=== PATIENT | male | born 1970 | race African-American/Black ===

== ENCOUNTER 2017-08-08 12:09 | Emergency (ER) | payer MEDICAID, OTHER ==
[~2017-08-08] VITALS: Ht 177.8 cm; Wt 86.2 kg
[~2017-08-08 12:09] MED LIST: AMOXICILLIN500 MG ORAL; ATIVAN1 MG ORAL; DEPAKOTE125 MG PO; DILANTIN100 MG ORAL; DILANTIN30 MG ORAL; LIBRIUM25 MG ORAL; PHENERGAN25 M1 ORAL; UNOBMED; VICODIN1 TA1 ORAL; ZANTAC150 MG ORAL; dilantin
[2017-08-08 12:14] VITALS: BP 113/68
[2017-08-08] MEDS ORDERED: LORazepam Inj 2mg/ml 1ml IM ONE (12:15)
--- NOTE | 2017-08-08 12:19 | Emergency Room Report ---
History of Present Illness General Chief Complaint: Overdose Present Illness HPI 46 yo male patient presents to ER BIB police for crack cocaine intoxication. Police report patient was running down the street naked and had to be "subdued". Reports patient has fits of agitation and calmness. Patient is not going to be booked nor is under arrest. Patient is poor historian. Patient denies chest pain, SOB, abdominal pain, fever. Allergies: Coded Allergies: No Known Allergies (Verified , 03/02/09) Patient History Past Medical History: see triage record Reviewed Nursing Documentation: PMH: Agreed, PSxH: Agreed Nursing Documentation-PMH Hx Cardiac Problems: No Hx Cancer: No Hx Gastrointestinal Problems: No History Of Psychiatric Problem: Yes Hx Neurological Problems: Yes Hx Seizures: Yes Hx Neurologic Surgery: No Review of Systems All Other Systems: negative except mentioned in HPI Physical Exam Vital Signs Date Time Temp Pulse Resp B/P (MAP) Pulse Ox O2 Delivery O2 Flow Rate FiO2 08/08/17 11:59 99.1 112 18 113/68 98 Room Air 99.1 Sp02 EP Interpretation: reviewed, normal General Appearance: well appearing, alert, GCS 15, non-toxic, mild distress, other - no clothes, dirty skin, shouting and yelling Head: normocephalic, atraumatic Eyes: bilateral eye normal inspection, bilateral eye PERRL ENT: hearing grossly normal, normal pharynx, no angioedema, normal voice, TMs + canals normal, uvula midline, moist mucus membranes Neck: full range of motion Respiratory: lungs clear, normal breath sounds, no rhonchi, no respiratory distress, no accessory muscle use, no wheezing, speaking full sentences Cardiovascular #1: regular rate, rhythm, no edema Gastrointestinal: non tender, soft, no mass, non-distended, no guarding, no rebound Genitourinary: no CVA tenderness Musculoskeletal: back normal, digits/nails normal, gait/station normal, normal range of motion, non-tender Neurologic: alert, oriented x3, responsive, motor strength/tone normal, sensory intact Psychiatric: anxious Skin: no rash Lymphatic: no adenopathy Medical Decision Making PA Attestation Dr. Toribio is my supervising Physician whom patient management has been discussed with. Diagnostic Impression: Primary Impression: Drug abuse Additional Impression: Behavior disturbance ER Course Pt. presents to the ED c/o drug overdose. Ddx considered but are not limited to drug use, alcohol use, psychosis. Vital signs: are WNL, pt. is afebrile Ordered labs and medication. ER COURSE: Patient appears extremely agitated. 2 mg Ativan ordered. Patient needed to be restrained with soft restraints. Patient seen by Dr. Toribio; agrees with current treatment plan. Urine positive for drug use. Positive for THC, PCP, cocaine, and amphetamine. Negative for Benzos and Opiates. CBC negative WBC No elevation in liver enzymes Acetaminophen level unremarkable Drug alcohol level unremarkable Patient resting comfortably, in no acute distress. Discuss care with Dr. Toribio. Will allow patient to rest. Patient awake and alert, able to answer questions. Reports he does not know where his clothes are. Reports he is homeless. Denies thoughts of hurting himself or others. Patient requesting food and drink. Will provide food, drink and clothes. DISCHARGE: At this time pt is stable for d/c to home. Patient will be discharged in AM with clothes. Patient is resting comfortably, in no acute distress, nontoxic appearing, talking without difficulty. Patient to take medications as instructed Will provide with patient care instructions and any necessary prescriptions. Care plan and follow-up instructions provided. Patient instructed to follow-up with primary care provider in 3 - 5 days. Patient questions asked and answered. Patient reports understanding and agreement to treatment plan. ER precautions given. Patient instructed to return to ER immediately for any new or worsening of symptoms including but not limited to increasing SOB, persistent fever. Labs Test 08/08/17 13:30 White Blood Count 9.2 K/UL (4.8-10.8) Red Blood Count 4.58 M/UL (4.70-6.10) Hemoglobin 13.0 G/DL (14.2-18.0) Hematocrit 39.8 % (42.0-52.0) Mean Corpuscular Volume 87 FL (80-99) Mean Corpuscular Hemoglobin 28.5 PG (27.0-31.0) Mean Corpuscular Hemoglobin Concent 32.7 G/DL (32.0-36.0) Red Cell Distribution Width 11.6 % (11.6-14.8) Platelet Count 312 K/UL (150-450) Mean Platelet Volume 7.3 FL (6.5-10.1) Neutrophils (%) (Auto) 63.8 % (45.0-75.0) Lymphocytes (%) (Auto) 26.0 % (20.0-45.0) Monocytes (%) (Auto) 7.4 % (1.0-10.0) Eosinophils (%) (Auto) 0.4 % (0.0-3.0) Basophils (%) (Auto) 2.4 % (0.0-2.0) Sodium Level 140 MMOL/L (136-145) Potassium Level 4.1 MMOL/L (3.5-5.1) Chloride Level 103 MMOL/L (98-107) Carbon Dioxide Level 29 MMOL/L (21-32) Anion Gap 9 mmol/L (5-15) Blood Urea Nitrogen 22 mg/dL (7-18) Creatinine 1.2 MG/DL (0.55-1.30) Estimat Glomerular Filtration Rate > 60 mL/min (>60) Glucose Level 80 MG/DL (74-106) Calcium Level 9.1 MG/DL (8.5-10.1) Total Bilirubin 1.1 MG/DL (0.2-1.0) Direct Bilirubin 0.2 MG/DL (0.0-0.3) Aspartate Amino Transf (AST/SGOT) 28 U/L (15-37) Alanine Aminotransferase (ALT/SGPT) 20 U/L (12-78) Alkaline Phosphatase 65 U/L (46-116) Total Protein 7.6 G/DL (6.4-8.2) Albumin 3.5 G/DL (3.4-5.0) Globulin 4.1 g/dL Albumin/Globulin Ratio 0.9 (1.0-2.7) Salicylates Level 0.6 ug/mL (2.8-20) Urine Opiates Screen Negative (NEGATIVE) Acetaminophen Level < 2 MCG/ML (10-30) Urine Barbiturates Screen Negative (NEGATIVE) Phencyclidine (PCP) Screen Positive (NEGATIVE) Urine Amphetamines Screen Positive (NEGATIVE) Urine Benzodiazepines Screen Negative (NEGATIVE) Urine Cocaine Screen Positive (NEGATIVE) Urine Marijuana (THC) Screen Positive (NEGATIVE) Serum Alcohol < 3 mg/dL Last Vital Signs Date Time Temp Pulse Resp B/P (MAP) Pulse Ox O2 Delivery O2 Flow Rate FiO2 08/08/17 11:59 99.1 112 18 113/68 98 Room Air 99.1 Disposition: HOME, SELF-CARE Condition: Stable Patient Instructions: Drug Overdose Additional Instructions: Followup with primary care provider. Do not use drugs. Patient questions asked and answered. ER precautions given, patient instructed to return to ER immediately for any new or worsening of symptoms. Tera Dumont Aug 08, 2017 12:19
[2017-08-08 13:56] LABS: ANION GAP 9 mmol/L (5-15); BASOPHILS % (AUTO) 2.4 % (0.0-2.0); BLOOD UREA NITROGEN 22 mg/dL (7-18); CALCIUM 9.1 MG/DL (8.5-10.1); CARBON DIOXIDE 29 MMOL/L (21-32); CHLORIDE 103 MMOL/L (98-107); CREATININE 1.2 MG/DL (0.55-1.30); EOSINOPHILS % (AUTO) 0.4 % (0.0-3.0); HEMATOCRIT 39.8 % (42.0-52.0); MEAN CORPUSCULAR VOLUME 87 FL (80-99); MONOCYTES % (AUTO) 7.4 % (1.0-10.0); NEUTROPHILS % (AUTO) 63.8 % (45.0-75.0); PLATELET COUNT 312 K/UL (150-450); POTASSIUM 4.1 MMOL/L (3.5-5.1); RED BLOOD COUNT 4.58 M/UL (4.70-6.10); RED CELL DISTRIBUTION WIDTH 11.6 % (11.6-14.8); SODIUM 140 MMOL/L (136-145); WHITE BLOOD COUNT 9.2 K/UL (4.8-10.8)
[2017-08-08 14:06] LABS: ALANINE AMINOTRANSFERASE 20 U/L (12-78); ALBUMIN 3.5 G/DL (3.4-5.0); ALBUMIN/GLOBULIN RATIO 0.9 (1.0-2.7); ALKALINE PHOSPHATASE 65 U/L (46-116); ASPARTATE AMINO TRANSFERASE 28 U/L (15-37); BILIRUBIN,TOTAL 1.1 MG/DL (0.2-1.0)
[2017-08-08 14:07] LABS: BILIRUBIN,DIRECT 0.2 MG/DL (0.0-0.3)
[2017-08-08 18:03] VITALS: BP 124/65
[2017-08-08 22:29] VITALS: BP 124/65
== END 2017-08-08 22:30 | disposition home or self-care (01) ==
LOC: EDBD 12:09 → EMR 12:18
DX: F14.10 Cocaine abuse, uncomplicated (principal); F91.9 Conduct disorder, unspecified
CPT/HCPCS: 36415; 80053; 80307; 80329; 82248; 85025; 99284